=== PATIENT | female | born 2000 | race African-American/Black ===

== ENCOUNTER 2020-10-07 22:10 | Emergency (ER) | payer SELFPAY ==
--- NOTE | ~2020-10-07 | US_ITS ---
EXAMINATION: US OB <=14 wk fetus w TV DATE: 10/08/2020 01:31 INDICATION: Vaginal bleeding TECHNIQUE: Real-time transabdominal and transvaginal obstetric ultrasound. FINDINGS: No prior studies for comparison. The uterus measures 7.6 x 4.3 x 3.2 cm. There is an intrauterine gestational sac, with pole marielos ntified. The crown rump length measures 0.94 cm, which correlates with a estimated gestational age o f 5 weeks 3 days. pole and yolk sac are not visualized. There is a small subchorionic hemorrhag e to the right of the gestational sac measuring 1.7 x 1.2 x 0.5 cm. Right ovary is normal. There are follicular changes in the left ovary. No free fluid in the pelvis. IMPRESSION: 1. Intrauterine gestational sac corresponding to 5 week 3 day gestation (EBER 06/07/2021). No identifia ble pole is seen yet. Recommend follow-up with serial quantitative beta-hCG levels and ultrasou nd as clinically warranted. 2: Small subchorionic hemorrhage. Reviewed, dictated and finalized at location A. IMPRESSION: 1. Intrauterine gestational sac corresponding to 5 week 3 day gestation (EBER ). No identifiable pole is seen yet. Recommend follow-up with seri al quantitative beta-hCG levels and ultrasound as clinically warranted. 2: Small subchorionic hemorrhage.
[2020-10-07 22:13] VITALS: BP 125/84; PULSE 105; RESP 18; TEMP 36.2; O2SAT 100
[2020-10-07 22:27] LABS: Basophils Percent Auto 0.2 % (0.2-1.2); Eosinophils Percent Auto 0.4 % (0-4.4); Hematocrit 39.4 % (37.0-47.0); Hemoglobin 13.5 g/dL (12.0-15.0); Immature Granulocyte Absolute 0.06 K/mm3 (0.00-0.031); Immature Granulocyte Percent A 0.7 % (0-0.5); Lymphocytes Absolute Auto 2.73 K/mm3 (0.9-3.2); Lymphocytes Percent Auto 33.2 % (18.3-44.2); Mean Corpuscular HGB Conc 34.3 g/dl (32-36); Mean Corpuscular Hemoglobin 31.9 pg (26-34); Mean Corpuscular Volume 93.1 fl (80-100); Mean Platelet Volume 9.9 fl (7.4-10.4); Monocytes Absolute Auto 0.6 K/mm3 (0.1-0.6); Monocytes Percent Auto 7.5 % (2.6-8.5); Neutrophils Absolute Auto 4.8 K/mm3 (1.3-6.7); Platelet Count Result 286 k/mm3 (150-375); Red Blood Count 4.23 M/mm3 (4.2-5.4); Red Cell Distribution Width 13.2 % (11.5-14.5); White Blood Count 8.2 K/mm3 (4.5-10.0)
[2020-10-07 23:50] VITALS: BP 116/75; PULSE 91
[2020-10-07 23:51] VITALS: BP 107/74; PULSE 99
[2020-10-07 23:52] VITALS: BP 114/80; PULSE 80
--- NOTE | 2020-10-07 23:55 | ED.PREGNANCY ---
HPI - General Chief complaint: Vaginal Bleeding Stated complaint: and spotting Time Seen by Provider: 10/07/20 23:54 History of Present Illness HPI Narrative: 20 yo female at about 6 weeks presents to the ED for vaginal spotting. She reports that she noted some blood on the toilet paper after wiping. She then noted more in her underwear. She believes that it has lightened up or stopped at this time. No pain. She has not had an US or Seen OB. She plans to see OB at [facility]. Related Data Allergies Allergy/AdvReac Type Severity Reaction Status Date / Time No Known Allergies Allergy Verified 10/07/20 22:11 Review of Systems Review of Systems: All systems reviewed & are unremarkable except as noted in HPI and below Constitutional: Constitutional: Denies chills and Denies fever(s) Cardiovascular: Cardiovascular: Denies chest pain Respiratory: Respiratory: Denies dyspnea Gastrointestinal: Gastrointestinal: Denies abdominal pain Genitourinary: Genitourinary: Denies hematuria and Denies dysuria Musculoskeletal: Musculoskeletal: Denies back pain [facility] Social History Social History Smoking status: Never smoker Gender identity (if verbalized by the patient): Female Sexual Orientation (if Verbalized by the Patient): Straight or Heterosexual Exam Const: General: healthy appearing, no acute distress and alert Orientation/consciousness: patient oriented x3 HENMT: Head: normal to inspection Neck: Neck: normal visual inspection and no lymphadenopathy Chest: Chest palpation & inspection: no tenderness Resp: Effort & Inspection: normal respiratory effort Auscultation: clear to auscultation bilaterally, no rales, no rhonchi and no wheezes Cardio: Jugular venous distension: no JVD Rate: regular rate Rhythm: regular rhythm Heart sounds: no murmurs GI: Inspection: non-distended GI Palp: Yes Soft to palpation and No Tenderness to palpation present (GI) Skin: General skin exam: normal color Neuro: General: patient oriented x3 and moves all extremities Speech: normal speech Extrem: General: no edema Psych: Appearance: well kempt Affect: normal affect Course Vital Signs Vital signs: Vital Signs Temperature 36.2 C L 10/07/20 22:13 Pulse Rate 105 H 10/07/20 22:13 Respiratory Rate 18 10/07/20 22:13 Blood Pressure 125/84 10/07/20 22:13 Pulse Oximetry 100 10/07/20 22:13 Temperature 36.2 C L 10/07/20 22:13 Pulse Rate 80 10/07/20 23:52 Respiratory Rate 18 10/07/20 22:13 Blood Pressure 114/80 10/07/20 23:52 Pulse Oximetry 100 10/07/20 22:13 MDM - OB/Uterine Contractions MDM Narrative Medical decision making narrative: I attempted to contact OB at [facility]. They would not let me speak to them due to her early gestational age. While I was on the phone trying to ensure follow-up she eloped from the ED. Medical Records Attestation: I reviewed the patient's medical records. Lab Data Attestation: I reviewed the patient's lab results. Result diagrams: 10/07/20 22:18 Labs: Lab Results 10/07/20 10/07/20 10/07/20 Range/Units 22:18 22:18 22:18 WBC 8.2 (4.5-10.0) K/mm3 RBC 4.23 (4.2-5.4) M/mm3 Hgb 13.5 (12.0-15.0) g/dL Hct 39.4 (37.0-47.0) % MCV 93.1 (80-100) fl MCH 31.9 (26-34) pg MCHC 34.3 (32-36) g/dl RDW 13.2 (11.5-14.5) % Plt Count 286 (150-375) k/mm3 MPV 9.9 (7.4-10.4) fl Immature Gran % (Auto) 0.7 H (0-0.5) % Neut % (Auto) 58.0 (45.5-73.1) % Lymph % (Auto) 33.2 (18.3-44.2) % Allen % (Auto) 7.5 (2.6-8.5) % Eos % (Auto) 0.4 (0-4.4) % Baso % (Auto) 0.2 (0.2-1.2) % Lymph # (Auto) 2.73 (0.9-3.2) K/mm3 Allen # (Auto) 0.6 (0.1-0.6) K/mm3 Eos # (Auto) 0.0 (0-0.3) K/mm3 Baso # (Auto) 0.0 (0.0-0.1) K/mm3 Abs Immat Gran (auto) 0.06 H (0.00-0.031) K/mm3 Absolute Neuts (aut
--- NOTE | 2020-10-08 00:26 | PC.NURSE ---
EDMD presented to bedside.
--- NOTE | 2020-10-08 01:19 | PC.NURSE ---
Pt to ultrasound via cart.
--- NOTE | 2020-10-08 02:08 | PC.NURSE ---
Pt returned from ultrasound and is now resting on cart in its lowest position with call button and personal items within reach. Spouse remains at bedside.
--- NOTE | 2020-10-08 03:29 | PC.NURSE ---
Pt eloped from ED with significant other.
== END 2020-10-08 05:30 | disposition left against medical advice (07) ==
PROVIDERS: Emergency Provider Emergency Medicine
DX: O20.0 Threatened abortion (principal); Z3A.01 Less than 8 weeks gestation of pregnancy
CPT/HCPCS: 36415; 76801; 76817; 84702; 85025; 85461; 99284